=== PATIENT | female | born 1945 | race Caucasian/White ===

== ENCOUNTER 2020-11-06 16:08 | Emergency (ER) | payer MEDICARE, OTHER, SELFPAY ==
--- NOTE | 2020-11-06 | XR_ITS ---
EXAMINATION: XR ANKLE, LEFT CLINICAL INFORMATION: Sprain COMPARISON: None TECHNIQUE: AP, lateral, and mortise views of the left ankle. FINDINGS: There is an oblique fracture through the distal fibula above the level of the tibiotalar joint. There is at most 6 mm displacement. There is marked associated overlying soft tissue swelling. There is mild widening of the lateral clear space to 6 mm. Talar dome itself is intact. There is enthesopathy of the distal Achilles tendon attachment. Moderate plantar calcaneal osteophyte present. XR/XR ankle LT min 3V IMPRESSION: Displaced oblique fracture through the distal fibula with overlying soft tissue swelling. Mild widening of the lateral clear space suggesting disruption of the ankle mortise.
[2020-11-06 17:02] VITALS: BP 183/87; PULSE 64; RESP 20; TEMP 36.6; O2SAT 99; BMI 21.6
[2020-11-06 18:00] VITALS: BP 183/87; PULSE 84; RESP 20; TEMP 36.6; O2SAT 99
--- NOTE | 2020-11-06 19:30 | ED.LOWEXIN ---
HPI - Extremity Injury (Lower) General Chief Complaint: Extremity Injury, Lower Stated Complaint: fall Time Seen by Provider: 11/06/20 17:03 Source: patient Mode of arrival: wheelchair History of Present Illness HPI Narrative: 75-year-old female with a past medical history of chronic back pain, hypertension, PAF on Eliquis, presenting to the ED complaining of left ankle pain s/p mechanical fall while walking in the [place] earlier this afternoon. Reports fell in a hole that was covered left leaves, twisting ankle. Denies head trauma or LOC. Managed to hobble herself out of [place] back to house with extreme pain. Admits to associated tingling, swelling. Denies injury to the area, headache, vision changes, nausea/vomiting, abdominal pain, back pain or symptoms prior to fall MD complaint: ankle injury Related Data Previous Rx's Medication Instructions Recorded oxycodone-acetaminophen [Percocet] 1 tab PO Q8H PRN 3 Days #9 tab 11/06/20 Allergies Allergy/AdvReac Type Severity Reaction Status Date / Time No Known Allergies Allergy Verified 11/06/20 17:07 Review of Systems Review of Systems: Constitutional: No Weight loss, No Fever, No Chills Eyes: No visual changes Cardiovascular: No Chest Pain, No SOB Respiratory: No Cough Gastrointestinal: No Nausea, No Vomiting, No Abdominal pain Musculoskeletal: + joint pain, No Myalgias, + Joint Swelling, no back pain, no neck pain Skin: No Skin Lesions, No rash Neuro: No Weakness, + tingling , No Paresthesias, no headache Yes all other systems are reviewed and are negative [facility] Past Medical History Attestation statement: The following information was validated with the patient. Medical History (Updated 11/06/20 @ 19:47 by ONI Lau) Chronic back pain HTN (hypertension) PAF (paroxysmal atrial fibrillation) Social History Social History Smoking Status: Never smoker Use of substances other than those prescribed or required for medical reasons: No Advance Directives: No Advance Directives Information Provided: No Physical Exam Vital Signs: Vital Signs: Last Vital Signs Temp 97.8 F 11/06/20 18:00 Pulse 84 11/06/20 18:00 Resp 20 11/06/20 18:00 BP 183/87 H 11/06/20 18:00 Pulse Ox 99 11/06/20 18:00 Body Mass Index 21.6 Const: General: cooperative and healthy appearing Orientation/consciousness: patient oriented x3 Limitations: no limitations HENMT: Head: Yes normal to inspection Ears: hearing grossly normal bilaterally General nose exam: Normal external nose present Face and sinus: Yes normal facial exam Eyes: General: appearance normal, both eyes and all related structures EOM: EOMs intact bilaterally Neck: Neck: Yes normal visual inspection and Yes full ROM Resp: Effort & Inspection: normal respiratory effort Cardio: Rate: regular rate Peripheral pulses: dorsalis pedis present GI: Inspection: Yes normal to inspection Palpation (GI): Soft to palpation and nontender Back/Spine/Pelvis: Other: No midline thoracic/lumbar spinous tenderness Skin: Rashes: no rashes Wounds: no wounds Neuro: General: patient oriented x3 Extrem: Other: Left ankle with swelling and mild ecchymosis > lateral aspect & ttp. Decreased ROM to ankle secondary to pain. Foot/toes nontender. Sensation intact to light touch, NV intact with good distal pulses. Knee/proximal tib-fib nontender with FROM knee intact/hip Course Course Course Narrative: Ankle LT IMPRESSION: Displaced oblique fracture through the distal fibula with overlying soft tissue swelling. Mild widening of the lateral clear space suggesting disruption of the ankle mortise. Case discussed with orthopedic ONI Jin, will have patient follow-up in office on Sunday or Sunday. Patient placed in posterior splint with stirrup and supplied with crutches to be nonweightbearing. MDM - Extremity Injury (Lower) MDM Narrative Medical decision making narrative: 75-year-old female with a past medical history of chronic back pain, hypertension, PAF on Eliquis, presenting to the ED complaining of left ankle pain s/p mechanical fall while walking [place] earlier this afternoon. On exam VSS, NAD, physical exam and as above. Concern for ankle fracture/dislocation or sprain. Plan: X-rays Discharge Plan Discharge Clinical Impression: Fracture of distal end of fibula Qualifiers: Encounter type: initial encounter Fracture type: closed Fracture morphology: unspecified fracture morphology Laterality: left Qualified Code(s): S82.832A - Other fracture of upper and lower end of left fibula, initial encounter for closed fracture Patient Disposition: Home, Self-Care Instructions: Ankle Fracture (ED) Additional Instructions: YOU NEED TO SEE THE TEACHER [employer] ON SUNDAY OR SUNDAY YOU HAVE AN ANKLE FRACTURE, YOU WERE PLACED IN A SPLINT IN THE EMERGENCY DEPARTMENT YOU CANNOT PUT ANY WEIGHT ON YOUR LEFT LEG, USE CRUTCHES KEEP SPLINT DRY & CLEAN YOU SHOULD ICE AND ELEVATE YOUR ANKLE PERCOCET IS AN OPIATE PAIN MEDICATION, TAKE ONLY WHEN PAIN IS SEVERE FOR THE NEXT 3 DAYS IN ADDITION YOU CAN TAKE TYLENOL MOTRIN AT HOME, HOWEVER BE YOUR PERCOCET TYLENOL MIXED IN, DO NOT EXCEED 4 G OF TYLENOL 1 DAY IF PAIN PERSISTS/BECOMES UNBEARABLE, YOUR TOES BECOME NUMB OR DISCOLORED REMOVED XANDER WRAP AND RETURN TO THE ED Prescriptions: New oxycodone-acetaminophen [Percocet] 5-325 mg tablet 1 tab PO Q8H PRN (Reason: severe pain) 3 Days Qty: 9 RF: 0 Referrals: Monalisa Dalton PA-C [[facility]] - 2 days (On Sunday or Sunday for her fracture)
[2020-11-06] MEDS: Acetaminophen 325 MG TABLET 650 MG PO (19:42)
[2020-11-06] MEDS: oxyCODONE HCl Immed Release 5 MG TABLET PO (19:42)
--- NOTE | 2020-11-06 19:46 | PC.NURSE ---
Patient medicated for pain per emar. PCT and RN in room posterier short leg splint. Patient ankle elevated.
== END 2020-11-06 20:34 | disposition home or self-care (01) ==
PROVIDERS: Emergency Provider Emergency Medicine
DX: S82.432A Displaced oblique fracture of shaft of left fibula, initial encounter for closed fracture (principal); W17.2XXA Fall into hole, initial encounter; Y93.01 Activity, walking, marching and hiking; Y92.828 Other wilderness area as the place of occurrence of the external cause; Y99.8 Other external cause status
CPT/HCPCS: 29515; 73610; 99283; 99284

== ENCOUNTER → 2020-11-09 09:55 | Outpatient (BNVA) | payer MEDICARE, OTHER, SELFPAY | PROVIDERS: Visit Provider Orthopaedic Surgery | DX: S82.832A Other fracture of upper and lower end of left fibula, initial encounter for closed fracture (principal); W18.31XA Fall on same level due to stepping on an object, initial encounter; Y93.01 Activity, walking, marching and hiking; Y92.9 Unspecified place or not applicable; Y99.8 Other external cause status | CPT/HCPCS: 99202 ==

== ENCOUNTER 2021-09-26 12:36 | Outpatient (REF) | payer MEDICARE, OTHER, SELFPAY ==
[2021-09-26 13:08] VITALS: BMI 21.6
[2021-09-26 13:09] VITALS: BP 142/71; PULSE 58; RESP 16; TEMP 36.4; O2SAT 100
== END 2021-09-26 12:37 | disposition home or self-care (01) ==
LOC: HO.MS 12:36
PROVIDERS: PCP Internal Medicine; Visit Provider Ophthalmology
PROC: (CPT 66821; principal; 2021-09-26 13:20)
DX: H26.492 Other secondary cataract, left eye (principal); Z96.1 Presence of intraocular lens; H50.10 Unspecified exotropia; I10 Essential (primary) hypertension; Z79.899 Other long term (current) drug therapy
CPT/HCPCS: 66821

== ENCOUNTER 2022-03-15 10:18 | Day surgery (SDC) | payer MEDICARE, OTHER, SELFPAY ==
--- NOTE | 2022-03-14 10:17 | HO.ANESPROP2 ---
Documented by User: Samantha Oliva NP 03/14/22 10:19 HPI - Anesthesia Eval Consult details Narrative: 76yo F for Right Eye Muscle Recession/Resection,RIGHT inferior rectus recession PCP cleared Eliquis for afib PMFSH Active Problems Active Problems: All Active Problems (Updated 03/09/22 @ 12:30 by Jalyn Haider RN) Fracture of distal end of fibula (Acute) Past Medical History Medical History Chronic back pain DDD (degenerative disc disease) History of melanoma HTN (hypertension) Hypertension PAF (paroxysmal atrial fibrillation) Peripheral neuropathy Raynauds disease Sciatica Surgical History Surgical History H/O cardiac radiofrequency ablation H/O colonoscopy History of esophagogastroduodenoscopy (EGD) History of hysterectomy Hx of cataract extraction Hx of ventral hernia repair S/P arthroscopic partial lateral meniscectomy Social History Social History Alcohol intake: current Alcohol intake frequency: does not drink Patient Tobacco Use Status: Never used Tobacco Use of substances other than those prescribed or required for medical reasons: No Are you DNR?: No Advance Directives: No Advance Directives Information Provided: Yes Current occupational status: retired Current occupation: right handed Meds Allergies Allergy/AdvReac Type Severity Reaction Status Date / Time No Known Allergies Allergy Verified 11/09/20 10:30 Home Medications Medication Instructions Recorded Confirmed Last Taken Type amlodipine 2.5 mg tablet 2.5 mg PO DAILY 11/09/20 Unknown History apixaban 5 mg tablet 5 mg PO BID 11/09/20 03/14/22 History atenolol 25 mg tablet mg PO 11/09/20 03/15/22 History fluticasone propionate 110 1 puff PO BID 11/09/20 Unknown History mcg/actuation HFA aerosol inhaler gabapentin 100 mg capsule 200 mg PO QID 11/09/20 Unknown History lisinopril 20 mg tablet 20 mg PO DAILY 11/09/20 Unknown History lorazepam 0.5 mg tablet 0.5 mg PO DAILY PRN 11/09/20 Unknown History metronidazole 0.75 % topical gel TOPICAL 11/09/20 Unknown History oxycodone-acetaminophen 5 mg-325 1 tab PO TID PRN 11/09/20 Unknown History mg tablet tramadol 50 mg tablet 1 mg PO 11/09/20 Unknown History zolpidem 5 mg tablet 5 mg PO BEDTIME PRN 11/09/20 Unknown History Exam Exam Date and Time: March 14, 2022 1017 Narrative Narrative: EKG per PCP notes SR with 1st degree AV block LAD Anterior infarct, age undetermined Assessment and Plan Assessment Anesthesia Assessment: Chart Reviewed Documented by User: Clarisa Roberts MD 03/15/22 11:09 PMFSH Past Medical History Medical History Chronic back pain DDD (degenerative disc disease) History of melanoma HTN (hypertension) Hypertension PAF (paroxysmal atrial fibrillation) Peripheral neuropathy Raynauds disease Sciatica Family History Family history of problems with anesthesia: No Surgical History Surgical History H/O cardiac radiofrequency ablation H/O colonoscopy History of esophagogastroduodenoscopy (EGD) History of hysterectomy Hx of cataract extraction Hx of ventral hernia repair S/P arthroscopic partial lateral meniscectomy History of Problems with Anesthesia: No Social History Social History Alcohol intake: current Alcohol intake frequency: does not drink Patient Tobacco Use Status: Never used Tobacco Use of substances other than those prescribed or required for medical reasons: No Are you DNR?: No Advance Directives: No Advance Directives Information Provided: Yes Current occupational status: retired Current occupation: right handed Meds Allergies Allergy/AdvReac Type Severity Reaction Status Date / Time No Known Allergies Allergy Verified 11/09/20 10:30 Home Medications Medication Instructions Recorded Confirmed Last Taken Type amlodipine 2.5 mg tablet 2.5 mg PO DAILY 11/09/20 Unknown History apixaban 5 mg tablet 5 mg PO BID 11/09/20 03/14/22 History atenolol 25 mg tablet mg PO 11/09/20 03/15/22 History fluticasone propionate 110 1 puff PO BID 11/09/20 Unknown History mcg/actuation HFA aerosol inhaler gabapentin 100 mg capsule 200 mg PO QID 11/09/20 Unknown History lisinopril 20 mg tablet 20 mg PO DAILY 11/09/20 Unknown History lorazepam 0.5 mg tablet 0.5 mg PO DAILY PRN 11/09/20 Unknown History metronidazole 0.75 % topical gel TOPICAL 11/09/20 Unknown History oxycodone-acetaminophen 5 mg-325 1 tab PO TID PRN 11/09/20 Unknown History mg tablet tramadol 50 mg tablet 1 mg PO 11/09/20 Unknown History zolpidem 5 mg tablet 5 mg PO BEDTIME PRN 11/09/20 Unknown History Exam Airway Mallampati Class: II (Missing a couple) TM Dist: >3cm Neck ROM: Full Heart: rrr Lungs: cta Assessment and Plan Assessment Anesthesia Assessment: Anesthesia Plan Discussed and Chart Reviewed Final Anesthetic Review Family History of Problems with Anesthesia: No History of Problems with Anesthesia: No NPO: Yes ASA Class: III Final Preanesthetic Review: No Changes in Pt Med Stat, Meds/Allgs Chart Reviewed and Consent Obtained/Reviewed Patient Risk: Intermediate Procedure Risk: Intermediate Anesthetic Plan Anesthetic Plan: GA Disposition: Standard PACU
[2022-03-15] VITALS (9 sets, daily range): BP systolic 106–135; BP diastolic 59–88; PULSE 66–83; RESP 16–17; TEMP 36.3–36.7; O2SAT 96–99; BMI 22.2
[2022-03-15] MEDS: Acetaminophen 325 MG TABLET 650 MG PO (14:00)
[2022-03-15] MEDS: oxyCODONE HCl Immed Release 5 MG TABLET PO (14:01)
--- NOTE | 2022-03-15 16:06 | HO.OPHTHAL ---
Ophthalmology Operative Note Date of Service: 03/15/22 Narrative: Diagnosis left hypertropia. Procedure recession of right inferior rectus muscle [address] Rivera anesthesia general complications none. The patient was brought to the operating room placed under general anesthesia. The patient's right eye was prepped and draped in the usual sterile ophthalmic fashion. A lid speculum was placed in the right eye and a peritomy was created around the inferior rectus muscle. The muscle was hooked and secured with a double-armed Vicryl suture. It was then disinserted from the globe and reattached to a position 2 mm behind the original insertion with the Vicryl suture. Conjunctiva was then closed with interrupted Vicryl sutures. The patient was woken from general anesthesia and discharged to postoperative recovery in good condition.
== END 2022-03-15 15:03 | disposition home or self-care (01) ==
PROVIDERS: PCP Internal Medicine; Visit Provider Ophthalmology
PROC: (CPT 67314; principal; 2022-03-15 12:00)
DX: H50.21 Vertical strabismus, right eye (principal); H49.12 Fourth [trochlear] nerve palsy, left eye; I10 Essential (primary) hypertension; I48.0 Paroxysmal atrial fibrillation; I73.00 Raynaud's syndrome without gangrene; G89.29 Other chronic pain; G62.9 Polyneuropathy, unspecified; M54.30 Sciatica, unspecified side; M54.9 Dorsalgia, unspecified; Z79.01 Long term (current) use of anticoagulants; Z79.899 Other long term (current) drug therapy; Z85.820 Personal history of malignant melanoma of skin
CPT/HCPCS: 67314; J1100; J2250; J2405